=== PATIENT | female | born 1975 | race Hispanic/Latino ===

== ENCOUNTER 2024-02-24 03:52 | Emergency (ER) | payer SELFPAY ==
[2024-02-24 04:41] LABS: #Basophils 0.05 10x3/uL (0.0-0.2); %Basophils 0.7 % (0.0-1.0); %Eosinophils 2.4 % (0.0-10.0); %Lymphocytes 38.6 % (21.0-51.0); %Monocytes 8.6 % (0.0-10.0); %Neutrophils 49.4 % (42.0-75.0); Hematocrit 39.6 % (36.0-47.0); Hemoglobin 13.1 g/dL (12.0-16.0); Mean Corpuscular HGB CONC 33.1 g/dL (32.0-36.0); Mean Corpuscular Volume 99.7 fL (78.0-98.0); Mean Platelet Volume 9.4 fL (7.4-10.4); Platelet Count 322 10x3/uL (130-400); RBC Distribution Width 12.3 % (11.5-14.5); Red Blood Cell (RBC) Count 3.97 mill/uL (4.20-5.40)
[2024-02-24 04:59] LABS: ALT (SGPT) 16 U/L (8-55); AST (SGOT) 22 U/L (5-34); Acetaminophen Less than 10 mcg/mL (Less than 10); Albumin 4.1 g/dL (3.5-5.0); Alcohol 402.9 mg/dL (Less than 10); Alkaline Phosphatase 81 U/L (40-110); Anion Gap 18 mmol/L (10-20); BUN (Urea Nitrogen) 9 mg/dL (7.0-18.7); Bilirubin, Total 0.2 mg/dL (0.2-1.2); Calc. Creatinine Clearance 0 mL/min (70-130); Calcium 8.3 mg/dL (7.8-10.44); Carbon Dioxide 20 mmol/L (22-29); Chloride 104 mmol/L (98-107); Estimated GFR 112; Globulin 3.6 g/dL (2.4-3.5); Glucose 117 mg/dL (70-105); Potassium 2.8 mmol/L (3.5-5.1); Protein, Total 7.7 g/dL (6.0-8.3); Salicylate Less than 8.0 mg/dL (Less than 8.0); Sodium 139 mmol/L (136-145)
[2024-02-24] MEDS ORDERED: Potassium Chloride 20 MEQ TAB ONE (06:29)
[2024-02-24] MEDS ORDERED: Potassium Bicarbonate/Cit Ac 20 MEQ TAB ONE (06:30)
== END 2024-02-24 07:50 | disposition home or self-care (01) ==
LOC: ERS 03:52
DX: F10.129 Alcohol abuse with intoxication, unspecified (principal); Y90.8 Blood alcohol level of 240 mg/100 ml or more
CPT/HCPCS: 36415; 80053; 80307; 85025; 99285